=== PATIENT | male | born 1985 | race Caucasian/White ===

== ENCOUNTER 2016-12-26 21:34 | Emergency (ER) | payer OTHER ==
[~2016-12-26] VITALS: Ht 180.3 cm; Wt 118.2 kg
[~2016-12-26 21:34] MED LIST: AMOXICILLIN 50500 MG PO; FIORICET 325 MG1 TAB PO; INDERAL10 MG PO; LIDOCANE; MUCINEX 60600 MG/TAB PO; PERCOCET 5/321 UDTAB PO
[2016-12-26 21:38] VITALS: BP 141/85; TEMP 98.5
[2016-12-26] MEDS ORDERED: KLONOPIN 0.5MG0.5 MG PO (21:43)
[2016-12-26] MEDS ORDERED: LEXAPRO 10MG10 MG PO (21:44)
[2016-12-27] MEDS ORDERED: NORCO 325 MG-51 TAB PO (00:13)
[2016-12-27 00:22] VITALS: PULSE 85
== END 2016-12-27 00:42 | disposition home or self-care (01) ==
LOC: COL.ER 21:34
DX: M25.572 Pain in left ankle and joints of left foot (principal); F41.9 Anxiety disorder, unspecified; F32.9 Major depressive disorder, single episode, unspecified; F17.210 Nicotine dependence, cigarettes, uncomplicated

== ENCOUNTER 2017-04-21 22:55 | Emergency (ER) | payer OTHER ==
[~2017-04-21] VITALS: Ht 180.3 cm; Wt 113.6 kg
[~2017-04-21 22:55] MED LIST changes: +KLONOPIN 0.5MG0.5 MG PO; +LEXAPRO 10MG10 MG PO; +NORCO 325 MG-51 TAB PO
[2017-04-21 23:03] VITALS: TEMP 98.3
[2017-04-21 23:49] LABS: BASO # 0.1 (0.0-0.2); EOS # 0.1 (0.0-0.7); EOS % 0.7 % (0-4.0); GRAN # 4.6 (1.4-6.5); GRAN % 57.6 % (42.2-75.2); HEMATOCRIT 47.8 % (42.0-52.0); HEMOGLOBIN 15.9 g/dl (13.5-18.0); LYMPH # 2.7 (1.2-3.4); MEAN CELL VOLUME 89 fl (80.0-100.0); MEAN CORPUSCULAR HEMOGLOBIN 30 pg (27.0-31.0); MEAN CORPUSCULAR HGB CONC 33 g/dl (33.0-37.0); MEAN PLATELET VOLUME 10.7 fl (7.4-10.4); MONO # 0.6 (0.1-0.6); MONO % 7.5 % (1.7-9.3); PLATELET COUNT 185 K/mm3 (130-400); RED BLOOD COUNT 5.37 M/mm3 (4.20-5.60)
[2017-04-21 23:59] LABS: ALBUMIN 4.7 gm/dL (3.5-5.0); BILIRUBIN,TOTAL 0.4 mg/dL (0.0-1.0); CALCIUM 9.2 mg/dL (8.4-10.2); CREATININE, serum 1.22 mg/dL (0.66-1.25); POTASSIUM 3.7 mmol/L (3.4-5.0); TOTAL PROTEIN 7.4 gm/dL (6.4-8.2)
[2017-04-22 01:12] VITALS: BP 128/93; PULSE 95
== END 2017-04-22 01:13 | disposition home or self-care (01) ==
LOC: COL.ER 22:55
PROVIDERS: Emergency Medicine
DX: S01.81XA Laceration without foreign body of other part of head, initial encounter (principal); G43.909 Migraine, unspecified, not intractable, without status migrainosus; F17.210 Nicotine dependence, cigarettes, uncomplicated; Z90.89 Acquired absence of other organs; Z98.890 Other specified postprocedural states; W22.8XXA Striking against or struck by other objects, initial encounter; Y92.009 Unspecified place in unspecified non-institutional (private) residence as the place of occurrence of the external cause
CPT/HCPCS: J7030; Q9967

== ENCOUNTER 2018-03-17 20:22 | Emergency (ER) | payer SELFPAY ==
[~2018-03-17] VITALS: Ht 180.3 cm; Wt 122.7 kg
[2018-03-17 20:25] VITALS: BP 135/83; TEMP 97.5
[2018-03-17] MEDS ORDERED: NORCO 325 MG-51 TAB PO (21:42)
[2018-03-17 21:56] VITALS: PULSE 62
[2018-03-17] MEDS ORDERED: AMOXICILLIN 50500 MG PO (21:57)
== END 2018-03-17 21:54 | disposition home or self-care (01) ==
LOC: COL.ER 20:22
DX: S01.511A Laceration without foreign body of lip, initial encounter (principal); F17.210 Nicotine dependence, cigarettes, uncomplicated; W01.198A Fall on same level from slipping, tripping and stumbling with subsequent striking against other object, initial encounter

== ENCOUNTER 2018-12-18 08:43 | Emergency (ER) | payer OTHER ==
[~2018-12-18] VITALS: Ht 180.3 cm; Wt 134.1 kg
[2018-12-18 08:51] VITALS: TEMP 99.1
[2018-12-18] MEDS ORDERED: PERCOCET 325 MG1 TA2 PO (09:03)
[2018-12-18] MEDS ORDERED: CELEBREX 200MG200 MG PO (09:04)
[2018-12-18] MEDS ORDERED: KLONOPIN 0.5MG0.5 MG PO (09:05)
[2018-12-18] MEDS ORDERED: ZYRTEC 10MG10 MG PO (09:05)
[2018-12-18] MEDS ORDERED: NICODERM C21 MG/PATC TD (09:05)
[2018-12-18] MEDS ORDERED: BUSPAR10 MG PO (09:06)
[2018-12-18] MEDS ORDERED: ANUSOL-HC SUPPO25 MG RC (09:06)
[2018-12-18] MEDS ORDERED: ACIPHEX20 MG PO (09:07)
[2018-12-18] MEDS ORDERED: TRUVADA PO (09:07)
[2018-12-18] MEDS ORDERED: MEN'S MULTIVIT1 EAC1 PO (09:08)
[2018-12-18 10:22] VITALS: BP 118/77; PULSE 97
== END 2018-12-18 10:23 | disposition home or self-care (01) ==
LOC: COL.ER 08:43
DX: M79.671 Pain in right foot (principal); F17.210 Nicotine dependence, cigarettes, uncomplicated; M10.9 Gout, unspecified; Z90.89 Acquired absence of other organs; Z98.890 Other specified postprocedural states; Z91.14 Patient's other noncompliance with medication regimen; Z79.52 Long term (current) use of systemic steroids
CPT/HCPCS: J1885